=== PATIENT | male | born 1985 | race Caucasian/White ===

== ENCOUNTER 2016-11-06 13:10 | Emergency (ER) | payer OTHER ==
[2016-11-06 13:16] VITALS: BP 127/87; PULSE 72; RESP 17; TEMP 97.5; O2SAT 94
[2016-11-06] MEDS ORDERED: OXYMETAZOLINE 30 ML NASAL SPRAY ONE (13:35)
[2016-11-06] MEDS ORDERED: SILVER NITRATE APPLICATOR 1 APPL TP ONE ×2 (13:36→13:42)
[2016-11-06] MEDS ORDERED: OXYMETAZOLINE 30 ML NASAL SPRAY EACHNARE ONE (13:41)
--- NOTE | 2016-11-06 13:44 | EDPHY ---
H & P Time Seen by Provider: 11/06/16 13:28 HPI/ROS: CHIEF COMPLAINT: Epistaxis HISTORY OF PRESENT ILLNESS: Patient is a 31-year-old male who presents to the emergency department with epistaxis in his left naris. Patient states he has had problems with nosebleeds in the past. This episode started at 7:00 a.m. this morning. It has been waxing waning throughout the day. It has been constant for the past 2 hours. It did not stop when he attempted to pack his nose. Denies any trauma. No headache. No fevers or chills. No other complaints. REVIEW OF SYSTEMS: Negative Past Medical/Surgical History: Includes epistaxis Past surgical history: Noncontributory Social history: Patient does not smoke Smoking Status: Never smoked Physical Exam: Vitals noted. Afebrile. Heart rate 72. General Appearance: Alert and no distress. HEENT: Pupils equal. The patient has packing in his left nares. No active bleeding around the gauze. No visible bleeding in his pharynx. Respiratory: No respiratory distress. Cardiac: regular rate and rhythm. Extremities: Full range of motion, normal appearing. Skin: No rashes or lesions. Neuro: Alert. Normal mood and affect. Constitutional: Initial Vital Signs Temperature (C) 36.4 C 11/06/16 13:14 Heart Rate 72 11/06/16 13:14 Respiratory Rate 17 11/06/16 13:14 Blood Pressure 127/87 H 11/06/16 13:14 O2 Sat (%) 94 11/06/16 13:14 O2 Delivery Mode Room Air Allergies/Adverse Reactions: No Known Allergies Allergy (Unverified 11/06/16 13:14) Home Medications: Medication Instructions Recorded NK [No Known Home Meds] 11/06/16 Medical Decision Making ED Course/Re-evaluation: In the emergency department the patient has gauze packing was removed. Ant- Synephrine was sprayed in his nose bilaterally. The nasal clamp was placed. I re-evaluated the patient. The bleeding had stopped. On my otoscopic exam I cannot see any active source of bleeding. I gave patient warnings prior to leaving. He was given a nasal clamp and Ant- Synephrine. He will use if his bleeding returns. He is given follow-up information for ENT. Differential Diagnosis: My differential includes but is not limited to anterior epistaxis, posterior epistaxis, mass, malignancy, ulceration, anemia - Data Points Medications Given: Discontinued Medications Silver Nitrate/Potassium Nitrate (Silver Nitrate Applicator) 3 each TP EDNOW ONE Stop: 11/06/16 13:43 Last Admin: 11/06/16 14:25 Dose: Not Given Departure - Departure Disposition: Home, Routine, Self-Care Clinical Impression: Acute anterior epistaxis Clinical Impression: (Ruled Out): Acute pharyngitis Condition: Good Instructions: Nosebleed (ED) Additional Instructions: If bleeding returns spray Afrin in both nostrils. Apply nasal clamp for 15-20 minutes without checking. Return with persistent symptoms. You have been given follow-up information with an Ears Nose and Throat specialist. Referrals: Ian Donnelly MD [Medical Doctor] - 5-7 days, call for appt.
== END 2016-11-06 14:44 | disposition home or self-care (01) ==
DX: R04.0 Epistaxis (principal)